=== PATIENT | female | born 1945 | race Caucasian/White ===

== ENCOUNTER 2020-12-31 11:56 | Inpatient (IN) ==
[2020-12-31] MEDS ORDERED: 0.9 % Sodium Chloride 1,000 ML IVC ONE (12:14)
[2020-12-31 12:36] LABS: Bacteria,Urine Few per hpf (None-Few); Bilirubin,Urine Negative (Negative); Blood,Urine Trace (Negative); Clarity,Urine Clear (Clear); Color,Urine Colorless (Yellow); Glucose,Urine (UA) 100 mg/dL (Normal); Ketones,Urine Negative (Negative); Leukocyte Esterase,Urine Small (Negative); Mucus,Urine Few per lpf (None-Few); Nitrite,Urine Negative (Negative); Protein,Urine 50 mg/dL (Neg-Trace); RBC,Urine 0-3 per hpf (0-3); Specific Gravity,Urine 1.008 (1.010-1.025); Squamous Epithelial Cell,Urine Few per hpf (None-Few); Urobilinogen,Urine Normal (Normal)
[2020-12-31] MEDS ORDERED: Naloxone 0.4 MG/ML INJ IVP PRN (13:46)
[2020-12-31] MEDS ORDERED: Ondansetron 4 MG/2 ML VIAL IVP PRN (13:46)
[2020-12-31] MEDS ORDERED: Acetaminophen 325 MG TABLET PO PRN (13:46)
[2020-12-31 14:36] LABS: Uric Acid 4.8 mg/dL (2.3-7.6)
[2020-12-31] MEDS: Sodium Bicarbonate 75 MEQ in 0.45 % Sodium Chloride 1,000 ML IVC SCH (15:01)
[2020-12-31] MEDS: *HR* Heparin 5,000 UNIT/ML VIAL SQ SCH ×2 (15:41→23:19)
[2020-12-31] MEDS ORDERED: Iron Sucrose Complex 200 MG in 0.9 % Sodium Chloride 100 ML IVPB ONE (16:24)
[2020-12-31 16:36] LABS: Protein/Creatinine Ratio,Urine 2.57 mg/mg (0.00-0.20); Sodium, Urine 36.8 mEq/L
[2020-12-31] MEDS: carvediloL 6.25 MG TABLET PO SCH (16:51)
[2021-01-01 03:17] LABS: Mean Corpuscular Hemoglobin 26.6 pg (28.0-33.3); Mean Corpuscular Volume 83.1 fL (83.0-100.0); Mean Platelet Volume 9.5 fL (9.4-12.4); Platelet Count 376 K/mcL (140-400); Red Blood Count 3.01 M/mcL (3.82-4.97); Red Cell Distribution Width 15.9 % (11.5-14.5)
[2021-01-01 03:45] LABS: Calcium 9.2 mg/dL (8.6-10.3); Magnesium 2.1 mg/dL (1.6-2.6)
[2021-01-01] MEDS: *HR* Heparin 5,000 UNIT/ML VIAL SQ SCH ×3 (07:52→23:00)
[2021-01-01] MEDS: carvediloL 6.25 MG TABLET PO SCH ×2 (07:52→16:15)
[2021-01-01] MEDS: Sodium Bicarbonate 75 MEQ in 0.45 % Sodium Chloride 1,000 ML IVC SCH (09:32)
[2021-01-02] MEDS: Sodium Bicarbonate 75 MEQ in 0.45 % Sodium Chloride 1,000 ML IVC SCH ×2 (00:22→15:20)
[2021-01-02 06:00] LABS: Hematocrit 23.5 % (35.3-44.9); Hemoglobin 7.5 g/dL (11.5-15.4); Mean Corpuscular HGB Conc 31.9 g/dL (31.6-35.5); Mean Corpuscular Hemoglobin 26.6 pg (28.0-33.3); Mean Corpuscular Volume 83.3 fL (83.0-100.0); Mean Platelet Volume 9.5 fL (9.4-12.4); Platelet Count 336 K/mcL (140-400); Red Blood Count 2.82 M/mcL (3.82-4.97); Red Cell Distribution Width 15.9 % (11.5-14.5); White Blood Count 8.5 K/mcL (4.3-11.1)
[2021-01-02 06:19] LABS: Calcium 9.2 mg/dL (8.6-10.3); Potassium 3.8 mEq/L (3.5-5.1)
[2021-01-02] MEDS: carvediloL 6.25 MG TABLET PO SCH ×2 (08:38→17:01)
[2021-01-02] MEDS: *HR* Heparin 5,000 UNIT/ML VIAL SQ SCH ×3 (08:38→23:39)
[2021-01-02 11:55] LABS: Lambda Qnt Free Light Chains 109.05 mg/L (5.71-26.30)
[2021-01-02 15:09] LABS: Kappa Qnt Free Light Chains 177.76 mg/L (3.30-19.40)
[2021-01-03 02:46] LABS: Basophils # 0.1 K/mcL (0.0-0.2); Basophils % 1.1 %; Eosinophils # 1.2 K/mcL (0.0-0.6); Hematocrit 25.6 % (35.3-44.9); Hemoglobin 8.2 g/dL (11.5-15.4); Immature Granulocytes % 0.4 % (0-4); Lymphocytes # 1.7 K/mcL (0.6-4.6); Lymphocytes % 15.4 %; Mean Corpuscular Hemoglobin 26.8 pg (28.0-33.3); Mean Corpuscular Volume 83.7 fL (83.0-100.0); Mean Platelet Volume 9.5 fL (9.4-12.4); Monocytes % 9.2 %; Platelet Count 378 K/mcL (140-400); Red Blood Count 3.06 M/mcL (3.82-4.97); Red Cell Distribution Width 16.3 % (11.5-14.5); Segmented Neutrophils % 62.9 %; White Blood Count 11.1 K/mcL (4.3-11.1)
[2021-01-03 03:08] LABS: Calcium 9.4 mg/dL (8.6-10.3); Potassium 3.8 mEq/L (3.5-5.1)
[2021-01-03] MEDS: Sodium Bicarbonate 75 MEQ in 0.45 % Sodium Chloride 1,000 ML IVC SCH (08:22)
[2021-01-03] MEDS: carvediloL 6.25 MG TABLET PO SCH (08:23)
[2021-01-03] MEDS: *HR* Heparin 5,000 UNIT/ML VIAL SQ SCH (08:23)
[2021-01-03] MEDS ORDERED: Iron Sucrose Complex 200 MG in 0.9 % Sodium Chloride 100 ML IVPB SCH (09:00)
[2021-01-03 14:20] VITALS: BP 151/81
[2021-01-04 15:58] LABS: Alpha 2 Globulin (PEP) 0.89 g/dL (0.48-1.05); Beta Globulin (PEP) 0.72 g/dL (0.48-1.10)
[2021-01-05 12:13] LABS: IFE Reflexed NOT DONE
== END 2021-01-03 16:46 | disposition home or self-care (01) | DRG 683 ==
LOC: 3ANU 11:56 → EMEROOARM 11:56 → 3ANU 14:41 → SUATTDRO 14:41
PROVIDERS: ADMIT Internal Medicine; ATTEND Internal Medicine

== ENCOUNTER 2021-06-30 10:11 | Inpatient (IN) ==
[2021-06-30] MEDS ORDERED: 0.9 % Sodium Chloride 1,000 ML IVC ONE (10:33)
[2021-06-30] MEDS ORDERED: Isovue-370 500 ML BOTTLE IVP ONE (10:34)
[2021-06-30 11:05] LABS: Basophils % 0.1 %; Hematocrit 30.7 % (35.3-44.9); Hemoglobin 9.8 g/dL (11.5-15.4); Immature Granulocytes % 0.5 % (0-4); Lymphocytes # 0.6 K/mcL (0.6-4.6); Lymphocytes % 2.8 %; Mean Corpuscular HGB Conc 31.9 g/dL (31.6-35.5); Mean Corpuscular Hemoglobin 30.6 pg (28.0-33.3); Mean Corpuscular Volume 95.9 fL (83.0-100.0); Mean Platelet Volume 10.4 fL (9.4-12.4); Monocytes # 0.5 K/mcL (0.0-1.3); Monocytes % 2.5 %; Neutrophils # 19.5 K/mcL (1.6-8.9); Platelet Count 164 K/mcL (140-400); Red Cell Distribution Width 13.4 % (11.5-14.5); Segmented Neutrophils % 94.1 %; White Blood Count 20.8 K/mcL (4.3-11.1)
[2021-06-30 11:22] LABS: INR 1.1; Prothrombin Time 12.7 Seconds (9.4-12.1)
[2021-06-30 11:24] LABS: Activated Partial Thrombo Time 22.5 Seconds (26.0-36.0)
[2021-06-30 11:30] LABS: Troponin I 0.07 ng/mL (< 0.04)
[2021-06-30 11:41] LABS: Albumin 2.7 g/dL (3.5-5.7); Albumin/Globulin Ratio 0.8 (1.1-2.2); Bilirubin,Direct 0.1 mg/dL (0.0-0.2); Bilirubin,Indirect 0.4 mg/dL (0.0-1.0); Bilirubin,Total 0.5 mg/dL (0.3-1.0); Calcium 8.5 mg/dL (8.6-10.3); Globulin 3.4 g/dL (2.4-3.5); Phosphorous 2.3 mg/dL (2.7-4.5); Total Protein 6.1 g/dL (6.4-8.9)
[2021-06-30] MEDS ORDERED: Potassium Chloride Elixir 20 MEQ/15 ML UDC PO ONE (11:41)
[2021-06-30 11:42] LABS: Potassium 1.9 mEq/L (3.5-5.1)
[2021-06-30 12:25] LABS: Bacteria,Urine Few per hpf (None-Few); Bilirubin,Urine Negative (Negative); Blood,Urine Small (Negative); Clarity,Urine Turbid (Clear); Color,Urine Light-Yellow (Yellow); Glucose,Urine (UA) Normal (Normal); Granular Casts,Urine Few per lpf (None Seen); Hyaline Casts,Urine Few per lpf (None Seen); Ketones,Urine Negative (Negative); Leukocyte Esterase,Urine Large (Negative); Mucus,Urine Few per lpf (None-Few); Nitrite,Urine Negative (Negative); Protein,Urine 30 mg/dL (Neg-Trace); Renal Epithelial Cells,Urine Few per hpf (None-Few); Specific Gravity,Urine 1.012 (1.010-1.025); Squamous Epithelial Cell,Urine Few per hpf (None-Few); Transitional Epi Cells,Urine Few per hpf (None-Few); Urobilinogen,Urine Normal (Normal); WBC,Urine 30-50 per hpf (0-3)
[2021-06-30 12:52] LABS: Adenovirus Not Detected (Not Detect); Bordetella Pertussis Not Detected (Not Detect); Chlamydophila pneumoniae Not Detected (Not Detect); Coronavirus 229E Not Detected (Not Detect); Coronavirus HKU1 Not Detected (Not Detect); Coronavirus NL63 Not Detected (Not Detect); Coronavirus OC43 Not Detected (Not Detect); Human Metapneumovirus Not Detected (Not Detect); Human Rhinovirus/Enterovirus Not Detected (Not Detect); Influenza A Subtype 2009 H1 Not Detected (Not Detect); Influenza B Not Detected (Not Detect); Mycoplasma pneumoniae Not Detected (Not Detect); Parainfluenza Virus 1 Not Detected (Not Detect); Parainfluenza Virus 2 Not Detected (Not Detect); Parainfluenza Virus 3 Not Detected (Not Detect); Parainfluenza Virus 4 Not Detected (Not Detect); Respiratory Syncytial Virus Not Detected (Not Detect); SARS-CoV-2 Not Detected (Not Detect)
[2021-06-30] MEDS ORDERED: Cefepime HCl 2,000 MG in Water for inj. (sterile) 20 ML IVP ONE (13:00)
[2021-06-30] MEDS ORDERED: Naloxone 0.4 MG/ML INJ IVP PRN (13:50)
[2021-06-30] MEDS ORDERED: Ondansetron 4 MG/2 ML VIAL IVP PRN (13:50)
[2021-06-30] MEDS ORDERED: 0.9 % Sodium Chloride 1,000 ML IVC SCH (14:45)
[2021-06-30 15:03] LABS: Potassium 2.2 mEq/L (3.5-5.1)
[2021-06-30] MEDS: Doxycycline 100 MG in 0.9 % Sodium Chloride Mini Bag 100 ML IVPB SCH (18:03)
[2021-06-30] MEDS ORDERED: Ipratropium/Albuterol Neb 3 ML IH PRN (18:23)
[2021-06-30] MEDS ORDERED: Potassium Chloride 40 MEQ, Lidocaine 1% 2 ML in 0.9 % Sodium Chloride 500 ML IVPB ONE (20:04)
[2021-06-30] MEDS ORDERED: Acetaminophen 325 MG TABLET PO ONE (21:47)
[2021-06-30 21:56] LABS: Calcium 7.9 mg/dL (8.6-10.3)
[2021-06-30] MEDS: Cefepime HCl 1,000 MG in Water for inj. (sterile) 20 ML IVP SCH (23:19)
[2021-06-30 23:30] LABS: Enterococcus by PCR Not Detected (Not Detect); Staphylococcus aureus by PCR Not Detected (Not Detect); Staphylococcus by PCR Not Detected (Not Detect); Streptococcus by PCR Not Detected (Not Detect)
[2021-06-30 23:31] LABS: Acinetobacter baumannii by PCR Not Detected (Not Detect); Candida albicans by PCR Not Detected (Not Detect); Candida glabrata by PCR Not Detected (Not Detect); Candida krusei by PCR Not Detected (Not Detect); Candida parapsilosis by PCR Not Detected (Not Detect); Candida tropicalis by PCR Not Detected (Not Detect); Enterobacter cloacae Cmplx PCR Not Detected (Not Detect); Enterobacteriaceae by PCR Not Detected (Not Detect); Escherichia coli by PCR DETECTED (Not Detect); Klebsiella oxytoca by PCR Not Detected (Not Detect); Klebsiella pneumoniae by PCR Not Detected (Not Detect); Proteus by PCR Not Detected (Not Detect); Pseudomonas aeruginosa by PCR Not Detected (Not Detect); Serratia marcescens by PCR Not Detected (Not Detect); Streptococcus agalactiae(B)PCR Not Detected (Not Detect); Streptococcus pneumoniae PCR Not Detected (Not Detect); Streptococcus pyogenes (A) PCR Not Detected (Not Detect)
[2021-07-01] MEDS ORDERED: *HR* Metoprolol 5 MG/5 ML VIAL IVP ONE (03:36)
[2021-07-01 04:48] LABS: Basophils % 0.2 %; Hematocrit 29.8 % (35.3-44.9); Hemoglobin 9.5 g/dL (11.5-15.4); Immature Granulocytes % 0.6 % (0-4); Lymphocytes # 0.5 K/mcL (0.6-4.6); Lymphocytes % 2.5 %; Mean Corpuscular HGB Conc 31.9 g/dL (31.6-35.5); Mean Corpuscular Hemoglobin 31.1 pg (28.0-33.3); Mean Corpuscular Volume 97.7 fL (83.0-100.0); Mean Platelet Volume 10.5 fL (9.4-12.4); Monocytes # 0.4 K/mcL (0.0-1.3); Monocytes % 2.3 %; Neutrophils # 17.5 K/mcL (1.6-8.9); Platelet Count 145 K/mcL (140-400); Red Blood Count 3.05 M/mcL (3.82-4.97); Red Cell Distribution Width 13.6 % (11.5-14.5); Segmented Neutrophils % 94.4 %; White Blood Count 18.5 K/mcL (4.3-11.1)
[2021-07-01] MEDS: *HR* Heparin 5,000 UNIT/ML VIAL SQ SCH ×2 (05:03→16:59)
[2021-07-01] MEDS: Doxycycline 100 MG in 0.9 % Sodium Chloride Mini Bag 100 ML IVPB SCH ×2 (05:03→16:59)
[2021-07-01] MEDS ORDERED: NIFEdipine Immed Rel 10 MG CAPSULE PO ONE (05:04)
[2021-07-01 05:07] LABS: Calcium 7.9 mg/dL (8.6-10.3); Magnesium 1.9 mg/dL (1.6-2.6); Potassium 2.4 mEq/L (3.5-5.1)
[2021-07-01] MEDS ORDERED: Potassium Chloride 40 MEQ, Lidocaine 1% 2 ML in 0.9 % Sodium Chloride 500 ML IVPB ONE (05:10)
[2021-07-01] MEDS ORDERED: dexAMETHasone 4 MG TABLET PO SCH (08:00)
[2021-07-01] MEDS ORDERED: Acetaminophen 325 MG TABLET PO PRN (10:24)
[2021-07-01] MEDS: Loratadine 10 MG TABLET PO SCH (10:34)
[2021-07-01 11:25] LABS: Calcium 8.1 mg/dL (8.6-10.3); Potassium 2.8 mEq/L (3.5-5.1)
[2021-07-01] MEDS: Potassium Chloride 40 MEQ, Lidocaine 1% 2 ML in 0.9 % Sodium Chloride 500 ML IVPB SCH ×2 (12:35→16:58)
[2021-07-01] MEDS: Cefepime HCl 1,000 MG in Water for inj. (sterile) 20 ML IVP SCH (15:01)
[2021-07-01] MEDS: carvediloL 6.25 MG TABLET PO SCH (16:58)
[2021-07-01 18:05] LABS: Calcium 8.1 mg/dL (8.6-10.3); Potassium 3.9 mEq/L (3.5-5.1)
[2021-07-01 22:30] LABS: Calcium 8.3 mg/dL (8.6-10.3); Potassium 4.4 mEq/L (3.5-5.1)
[2021-07-02 01:16] LABS: Basophils % 0.1 %; Hematocrit 28.9 % (35.3-44.9); Immature Granulocytes % 0.4 % (0-4); Lymphocytes # 0.6 K/mcL (0.6-4.6); Lymphocytes % 3.3 %; Mean Corpuscular HGB Conc 31.1 g/dL (31.6-35.5); Mean Corpuscular Hemoglobin 30.5 pg (28.0-33.3); Mean Platelet Volume 10.4 fL (9.4-12.4); Monocytes # 0.5 K/mcL (0.0-1.3); Monocytes % 2.5 %; Neutrophils # 17.6 K/mcL (1.6-8.9); Platelet Count 138 K/mcL (140-400); Red Blood Count 2.95 M/mcL (3.82-4.97); Red Cell Distribution Width 13.9 % (11.5-14.5); Segmented Neutrophils % 93.7 %; White Blood Count 18.8 K/mcL (4.3-11.1)
[2021-07-02 01:28] LABS: Calcium 8.3 mg/dL (8.6-10.3); Potassium 4.3 mEq/L (3.5-5.1)
[2021-07-02] MEDS: Cefepime HCl 1,000 MG in Water for inj. (sterile) 20 ML IVP SCH ×2 (02:23→15:10)
[2021-07-02] MEDS: Doxycycline 100 MG in 0.9 % Sodium Chloride Mini Bag 100 ML IVPB SCH ×2 (05:34→18:43)
[2021-07-02] MEDS: *HR* Heparin 5,000 UNIT/ML VIAL SQ SCH ×2 (05:36→18:45)
[2021-07-02] MEDS: Loratadine 10 MG TABLET PO SCH (08:23)
[2021-07-02] MEDS: carvediloL 6.25 MG TABLET PO SCH ×2 (08:24→18:44)
[2021-07-02] MEDS ORDERED: *HR* LORazepam 2 MG/ML VIAL IVP ONE ×2 (20:02→20:04)
[2021-07-03] MEDS: Cefepime HCl 1,000 MG in Water for inj. (sterile) 20 ML IVP SCH (01:32)
[2021-07-03 04:09] LABS: Basophils % 0.1 %; Hematocrit 27.5 % (35.3-44.9); Hemoglobin 8.6 g/dL (11.5-15.4); Immature Granulocytes % 0.6 % (0-4); Lymphocytes # 0.7 K/mcL (0.6-4.6); Lymphocytes % 3.9 %; Mean Corpuscular HGB Conc 31.3 g/dL (31.6-35.5); Mean Corpuscular Hemoglobin 30.8 pg (28.0-33.3); Mean Corpuscular Volume 98.6 fL (83.0-100.0); Mean Platelet Volume 11.4 fL (9.4-12.4); Monocytes # 0.3 K/mcL (0.0-1.3); Neutrophils # 16.1 K/mcL (1.6-8.9); Platelet Count 111 K/mcL (140-400); Red Blood Count 2.79 M/mcL (3.82-4.97); Red Cell Distribution Width 13.9 % (11.5-14.5); Segmented Neutrophils % 93.4 %; White Blood Count 17.3 K/mcL (4.3-11.1)
[2021-07-03 04:16] LABS: Calcium 8.2 mg/dL (8.6-10.3); Potassium 3.8 mEq/L (3.5-5.1)
[2021-07-03] MEDS: Doxycycline 100 MG in 0.9 % Sodium Chloride Mini Bag 100 ML IVPB SCH (05:05)
[2021-07-03] MEDS: *HR* Heparin 5,000 UNIT/ML VIAL SQ SCH ×2 (05:06→18:48)
[2021-07-03] MEDS ORDERED: *HR* LORazepam 2 MG/ML VIAL IVP ONE ×3 (05:30→21:34)
[2021-07-03] MEDS ORDERED: 0.9 % Sodium Chloride 1,000 ML IVC SCH (07:00)
[2021-07-03] MEDS: Loratadine 10 MG TABLET PO SCH (08:40)
[2021-07-03] MEDS: carvediloL 6.25 MG TABLET PO SCH ×2 (08:40→18:48)
[2021-07-03] MEDS ORDERED: cefTRIAXone 2,000 MG in Water for inj. (sterile) 20 ML IVP SCH (13:00)
[2021-07-03] MEDS: Acetaminophen IV 500 MG/50 ML BAG IVPB PRN ×2 (16:45→19:00)
[2021-07-03] MEDS ORDERED: Haloperidol Lactate 5 MG/ML VIAL IVP ONE (18:12)
[2021-07-03] MEDS: Ampicillin/Sulbactam 3,000 MG in 0.9 % Sodium Chloride Mini Bag 100 ML IVPB SCH (20:57)
[2021-07-04] MEDS: Acetaminophen IV 500 MG/50 ML BAG IVPB PRN (01:50)
[2021-07-04] MEDS ORDERED: *HR* LORazepam 2 MG/ML VIAL IVP ONE (02:23)
[2021-07-04 04:12] LABS: ABG Base Excess 1 mEq/L (-2 to 3); ABG HCO3 26 mEq/L (21-27); ABG Oxygen Saturation 86 % (95-98); ABG PCO2 41 mmHg (35-45); ABG PO2 51 mmHg (85-104); ABG TCO2 27 mEq/L (20-26)
[2021-07-04] MEDS ORDERED: *HR* HYDROmorphone (PF) 1 MG/ML SYRINGE IVP ONE ×2 (04:29→12:46)
[2021-07-04] MEDS: *HR* Heparin 5,000 UNIT/ML VIAL SQ SCH (04:42)
[2021-07-04 05:57] LABS: Basophils % 0.1 %; Hemoglobin 7.9 g/dL (11.5-15.4); Mean Corpuscular Volume 98.8 fL (83.0-100.0); Mean Platelet Volume 10.5 fL (9.4-12.4); Nucleated Red Blood Cells 0.1 /100 WBC (0)
[2021-07-04 05:58] LABS: Immature Granulocytes % 0.6 % (0-4); Immature Platelets 3.9 % (1.1-6.1); Lymphocytes # 0.5 K/mcL (0.6-4.6); Lymphocytes % 3.5 %; Mean Corpuscular HGB Conc 31.6 g/dL (31.6-35.5); Mean Corpuscular Hemoglobin 31.2 pg (28.0-33.3); Monocytes # 0.3 K/mcL (0.0-1.3); Neutrophils # 14.1 K/mcL (1.6-8.9); Red Blood Count 2.53 M/mcL (3.82-4.97); Segmented Neutrophils % 93.8 %
[2021-07-04 06:00] LABS: Platelet Count 87 K/mcL (140-400)
[2021-07-04 06:07] LABS: Calcium 8.1 mg/dL (8.6-10.3); Potassium 3.5 mEq/L (3.5-5.1)
[2021-07-04] MEDS: Ampicillin/Sulbactam 3,000 MG in 0.9 % Sodium Chloride Mini Bag 100 ML IVPB SCH (08:44)
[2021-07-04] MEDS: Loratadine 10 MG TABLET PO SCH (08:47)
[2021-07-04] MEDS: carvediloL 6.25 MG TABLET PO SCH ×2 (08:47→15:48)
[2021-07-04] MEDS ORDERED: Megestrol Acetate 400 MG/10 ML UDC PO SCH (09:00)
[2021-07-04] MEDS ORDERED: *HR* LORazepam 2 MG/ML VIAL IVP PRN (09:16)
[2021-07-04 12:51] LABS: Hemoglobin 8.9 g/dL (11.5-15.4); Immature Platelets 4.9 % (1.1-6.1); Mean Corpuscular HGB Conc 31.8 g/dL (31.6-35.5); Mean Corpuscular Hemoglobin 31.4 pg (28.0-33.3); Mean Corpuscular Volume 98.9 fL (83.0-100.0); Mean Platelet Volume 11.2 fL (9.4-12.4); Red Blood Count 2.83 M/mcL (3.82-4.97); Red Cell Distribution Width 14.2 % (11.5-14.5); White Blood Count 21.5 K/mcL (4.3-11.1)
[2021-07-04] MEDS ORDERED: *HR* HYDROmorphone (PF) 1 MG/ML SYRINGE IVP PRN ×2 (14:22→19:37)
[2021-07-04] MEDS: *HR* LORazepam 2 MG/ML VIAL IVP PRN ×2 (17:35→22:47)
[2021-07-04] MEDS: Haloperidol Lactate 5 MG/ML VIAL IVP PRN (21:09)
[2021-07-04] MEDS: *HR* HYDROmorphone (PF) 1 MG/ML SYRINGE IVP PRN ×2 (21:09→22:47)
[2021-07-05] MEDS: Haloperidol Lactate 5 MG/ML VIAL IVP PRN (02:33)
[2021-07-05] MEDS: *HR* HYDROmorphone (PF) 1 MG/ML SYRINGE IVP PRN ×5 (02:33→21:10)
[2021-07-05] MEDS ORDERED: Haloperidol Lactate 5 MG/ML VIAL IM PRN (02:50)
[2021-07-05] MEDS ORDERED: Prochlorperazine 10 MG/2 ML VIAL IM PRN (02:51)
[2021-07-05] MEDS: Morphine Sulfate Oral CONC 10 MG/0.5 ML ORAL.SYG SL PRN (04:49)
[2021-07-05] MEDS: *HR* LORazepam 2 MG/ML VIAL IVP PRN ×5 (05:18→21:10)
[2021-07-06] MEDS: *HR* LORazepam 2 MG/ML VIAL IVP PRN ×4 (04:20→20:56)
[2021-07-06] MEDS: *HR* HYDROmorphone (PF) 1 MG/ML SYRINGE IVP PRN ×4 (04:21→20:56)
[2021-07-06] MEDS: Haloperidol Lactate 5 MG/ML VIAL IVP PRN (10:19)
[2021-07-07] MEDS: *HR* HYDROmorphone (PF) 1 MG/ML SYRINGE IVP PRN (03:17)
[2021-07-07] MEDS: *HR* LORazepam 2 MG/ML VIAL IVP PRN ×5 (03:18→20:36)
[2021-07-07] MEDS: Morphine Sulfate Oral CONC 10 MG/0.5 ML ORAL.SYG SL PRN ×4 (07:39→20:36)
[2021-07-07] MEDS ORDERED: *HR* HYDROmorphone (PF) 1 MG/ML SYRINGE IVP PRN (09:03)
[2021-07-07] MEDS ORDERED: Atropine 1% Opth Drops 100 DROP/5 ML BOTTLE SL PRN (19:02)
[2021-07-07 19:38] VITALS: BP 82/41; PULSE 99; TEMP 96.9; O2SAT 69
[2021-07-07] MEDS: Haloperidol Lactate 5 MG/ML VIAL IVP PRN (20:36)
[2021-07-08] MEDS: *HR* LORazepam 2 MG/ML VIAL IVP PRN ×2 (05:13→07:19)
[2021-07-08] MEDS: Haloperidol Lactate 5 MG/ML VIAL IVP PRN ×2 (05:13→16:03)
[2021-07-08] MEDS: Morphine Sulfate Oral CONC 10 MG/0.5 ML ORAL.SYG SL PRN ×3 (05:14→16:04)
[2021-07-08] MEDS ORDERED: Scopolamine Patch 1.5 MG PATCH.TD72 TD SCH (09:15)
== END 2021-07-08 18:01 | disposition expired | DRG 871 ==
LOC: EMEROOARM 10:11 → 2ANU 10:11 → SUATTDRO 14:58 → 2ANU 16:31 → SUATTDRO 07-01 14:15 → 2ANU 07-06 12:02
PROVIDERS: ADMIT General Practice; ATTEND Internal Medicine